=== PATIENT | male | born 1960 | race Asian ===

== ENCOUNTER 2017-01-05 06:48 | Inpatient (IN) | payer BC ==
[2017-01-05] MEDS ORDERED: Heparin VIAL(*) 5000 UNITS/ML VIAL (FIVE THOUSAND) ONE (06:53)
[2017-01-05] MEDS ORDERED: Heparin VIAL(*) 5000 UNITS/ML VIAL (FIVE THOUSAND) IV ONE (06:55)
[2017-01-05 07:03] LABS: Hematocrit 46 % (42-52); Hemoglobin 15.3 g/dl (14.0-18.0); Mean Corpuscular HGB Conc 34 g/dl (31-36); Mean Corpuscular Hemoglobin 30 pg (27-31); Mean Corpuscular Volume 90 fL (80-94); Mean Platelet Volume 8 um3 (7.4-10.4); Red Blood Count 5.06 10^6/ul (4.0-5.4); Red Cell Distribution Width 14 % (10.5-15); White Blood Count 6.3 10^3/ul (3.5-10.8)
[2017-01-05] MEDS ORDERED: Heparin 2 UNITS/ML IVPREMIX* 3,000 ML IV ONE ×2 (07:07→07:14)
[2017-01-05] MEDS ORDERED: Lidocaine 1% INJ* 10 MG/ML 30 ML SDV ONE ×2 (07:07→07:14)
[2017-01-05] MEDS ORDERED: nitroGLYCERIN DRIP* 250 ML ONE ×2 (07:13→07:14)
[2017-01-05] MEDS ORDERED: VERAPAMIL 2.5 MG/ML 4 ML VIAL ONE (07:13)
[2017-01-05] MEDS ORDERED: Heparin(*) 1000 UNIT/ML 10 ML VIAL CATH LAB IV ONE (07:13)
[2017-01-05] MEDS ORDERED: Iohexol 350 (CONTRAST) 200 ML MDV IV ONE ×2 (07:14→07:15)
[2017-01-05] MEDS ORDERED: Midazolam* 1 MG/ML 5 ML VIAL (5 MG) ONE (07:14)
[2017-01-05] MEDS ORDERED: fentaNYL* 50 MCG/ML 2 ML VIAL (100 MCG VIAL) ONE (07:14)
[2017-01-05 07:19] LABS: Albumin 4.2 g/dL (3.2-5.2); BUN/Creatinine Ratio 15.7 (8-20); Calcium 9.2 mg/dL (8.6-10.3); EGFR African American 90.6 (>60); EGFR Non-African American 70.5 (>60); Globulin 3.3 g/dL (2-4); Potassium 3.6 mmol/L (3.5-5.0); Total Bilirubin 0.6 mg/dL (0.2-1.0); Total Protein 7.5 g/dL (6.4-8.9)
[2017-01-05] MEDS ORDERED: Nitroglycerin TAB 0.4 MG* 0.4 MG TAB ONE (07:21)
--- NOTE | 2017-01-05 07:21 | ED ---
Bonifacio Mehta Rebecca, scribed for Dionisio Christine MD on 01/05/17 at 0656 . HPI Chest Pain - HPI Summary HPI Summary: Pt is a 56 y/o M BIBA who presents to ED c/o right anterior CP. Pain began this morning at approximately 0600. Initially, pain was severe, ranked 9/10 and now it is moderate, ranked 5/10 after 1x NTG and 324 mg ASA administration en route to [facility] ED. Sx aggravated by nothing, alleviated by NTG and ASA. Additionally c/ o diaphoresis. EMS report noticing ST elevation in V2, V3 and V4 while en route to [facility] ED. Is not on any blood thinners. No PMHx CAD. PMhx HTN. BG was 179 en route. NKDA. - History of Current Complaint Chief Complaint: EDChestPainROMI Hx Obtained From: Patient, EMS Onset/Duration: Still Present Time of Onset: 06:00 Initial Severity: Severe - 9/10 Current Severity: Moderate - 5/10 Pain Intensity: 5 Pain Scale Used: 0-10 Numeric Chest Pain Location: Right Anterior Aggravating Factor(s): Nothing Alleviating Factor(s): EMS Tx Associated Signs and Symptoms: Positive: Diaphoresis - Allergy/Home Medications Allergies/Adverse Reactions: Allergies Allergy/AdvReac Type Severity Reaction Status Date / Time No Known Allergies Allergy Verified 01/05/17 07:02 PMH/Surg Hx/FS Hx/Imm Hx Cardiovascular History: Reports: Hx Hypertension Denies: Hx Coronary Artery Disease History: Denies: Hx Renal Disease Infectious Disease History: Denies: Traveled Outside the [place] in Last 30 Days - Family History Known Family History: Positive: Unknown - Unable to obtain - Social History Lives: With Family Alcohol Use: None Substance Use Type: Reports: None Smoking Status (MU): Never Smoked Tobacco Review of Systems Positive: Skin Diaphoresis Positive: Chest Pain All Other Systems Reviewed And Are Negative: Yes Physical Exam Triage Information Reviewed: Yes Vital Signs On Initial Exam: Initial Vitals BP 124/90 01/05/17 06:52 Vital Signs Reviewed: Yes Appearance: Positive: Well-Appearing, Pain Distress - mild Skin: Positive: Warm Head/Face: Positive: Normal Head/Face Inspection Eyes: Positive: DARIN ENT: Positive: Hearing grossly normal Neck: Positive: Supple Respiratory/Lung Sounds: Positive: Clear to Auscultation, Breath Sounds Present Cardiovascular: Positive: RRR Abdomen Description: Positive: Nontender, Soft Bowel Sounds: Positive: Present Musculoskeletal: Positive: Strength/ROM Intact Neurological: Positive: Alert, Oriented to Person Place, Time Psychiatric: Positive: Affect/Mood Appropriate Diagnostics - Vital Signs Vital Signs Temp Pulse Resp BP Pulse Ox 01/05/17 07:00 97.6 F 57 22 125/86 98 01/05/17 06:54 59 16 97 01/05/17 06:52 124/90 - Laboratory Lab Results: Lab Results 01/05/17 01/05/17 01/05/17 Range/Units 06:54 06:54 06:54 WBC 6.3 (3.5-10.8) 10^3/ul RBC 5.06 (4.0-5.4) 10^6/ul Hgb 15.3 (14.0-18.0) g/dl Hct 46 (42-52) % MCV 90 (80-94) fL MCH 30 (27-31) pg MCHC 34 (31-36) g/dl RDW 14 (10.5-15) % Plt Count 232 (150-450) 10^3/ul MPV 8 (7.4-10.4) um3 INR (Anticoag Therapy) 0.90 (0.89-1.11) APTT 25.5 L (26.0-36.3) seconds Sodium 134 (133-145) mmol/L Potassium 3.6 (3.5-5.0) mmol/L Chloride 103 (101-111) mmol/L Carbon Dioxide 24 (22-32) mmol/L Anion Gap 7 (2-11) mmol/L BUN 17 (6-24) mg/dL Creatinine 1.08 (0.67-1.17) mg/dL Est GFR ( Amer) 90.6 (>60) Est GFR (Non-Af Amer) 70.5 (>60) BUN/Creatinine Ratio 15.7 (8-20) Glucose 165 H (70-100) mg/dL Calcium 9.2 (8.6-10.3) mg/dL Total Bilirubin 0.60 (0.2-1.0) mg/dL AST 17 (13-39) U/L ALT 24 (7-52) U/L Alkaline Phosphatase 38 (34-104) U/L Total Creatine Kinase 117 (10-223) U/L CK-MB (CK-2) Pending Myoglobin Pending Troponin I Pending Total Protein 7.5 (6.4-8.9) g/dL Albumin 4.2 (3.2-5.2) g/dL Globulin 3.3 (2-4) g/dL Albumin/Globulin Ratio 1.3 (1-3) LDL Cholesterol Direct 92 mg/dL Blood Type Antibody Screen 01/05/17 Range/Units 06:54 WBC (3.5-10.8) 10^3/ul RBC (4.0-5.4) 10^6/ul Hgb (14.0-18.0) g/dl Hct (42-52) % MCV (80-94) fL MCH (27-31) pg MCHC (31-36) g/dl RDW (10.5-15) % Plt Count (150-450) 10^3/ul MPV (7.4-10.4) um3 INR (Anticoag Therapy) (0.89-1.11) APTT (26.0-36.3) seconds Sodium (133-145) mmol/L Potassium (3.5-5.0) mmol/L Chloride (101-111) mmol/L Carbon Dioxide (22-32) mmol/L Anion Gap (2-11) mmol/L BUN (6-24) mg/dL Creatinine (0.67-1.17) mg/dL Est GFR ( Amer) (>60) Est GFR (Non-Af Amer) (>60) BUN/Creatinine Ratio (8-20) Glucose (70-100) mg/dL Calcium (8.6-10.3) mg/dL Total Bilirubin (0.2-1.0) mg/dL AST (13-39) U/L ALT (7-52) U/L Alkaline Phosphatase (34-104) U/L Total Creatine Kinase (10-223) U/L CK-MB (CK-2) Myoglobin Troponin I Total Protein (6.4-8.9) g/dL Albumin (3.2-5.2) g/dL Globulin (2-4) g/dL Albumin/Globulin Ratio (1-3) LDL Cholesterol Direct mg/dL Blood Type A Positive Antibody Screen Pending Result Diagrams: 01/05/17 06:54 01/05/17 06:54 Lab Statement: Any lab studies that have been ordered have been reviewed, and results considered in the medical decision making process. - Radiology CXR Xray Interpretation: No Acute Changes Radiology Interpretation Completed By: ED Physician - EKG 0650 Cardiac Rate: Bradycardia - 56 bpm EKG Rhythm: Sinus Bradycardia EKG Interpretation: Anterior wall STEMI Chest Pain Course/Dx - Course Assessment/Plan: Pt is a 56 y/o M BIBA who presents to ED c/o right anterior CP. Pain began this morning at approximately 0600. Initially, pain was severe, ranked 9/10 and now it is moderate, ranked 5/10 after 1x NTG administration en route to [facility] ED. Sx aggravated by nothing, alleviated by NTG. Additionally c/o diaphoresis. EMS report noticing ST elevation in V2, V3 and V4 while en route to [facility] ED. Is not on any blood thinners. No PMHx CAD. BG was 179 en route. NKDA. 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 EKG is sinus bradycardia with an anterior wall ID. CXR reveals no acute findings, as rios kimy ED physician. In the ED course, pt was administered Heparin. - Diagnoses Provider Diagnoses: STEMI (ST elevation myocardial infarction) During the Visit The Following Alert/Code Occurred: STEMI - Called at 0640 - Provider Notifications Discussed Care Of Patient With: Desiree Madera Time Discussed With Above Provider: 07:00 Instructed by Provider To: Other - Will evaluate pt in the ED. - Critical Care Time Critical Care Time: 30-74 min Discharge - Discharge Plan Condition: Fair Disposition: ADMITTED TO [facility] Referrals: Non Staff,Doctor [Primary Care Provider] - The documentation as recorded by the Bonifacio guadalupe Rebecca accurately reflects the service I personally performed and the decisions made by me, Dionisio Christine MD.
[2017-01-05 07:29] LABS: Troponin I 0.04 ng/mL (<0.04)
[2017-01-05] MEDS ORDERED: Lidocaine 2% (CARDIAC)* 20 MG/ML 5 ML SYRINGE (100 MG) ONE (07:43)
[2017-01-05] MEDS ORDERED: Ticagrelor* 90 MG TAB PO ONE (07:53)
[2017-01-05] MEDS ORDERED: Eptifibatide IV (Load dose)(*) 2 MG/ML 10 ml VIAL ONE ×2 (07:56→07:57)
[2017-01-05] MEDS ORDERED: Atropine SYRINGE* 0.1 MG/ML 10 ML SYRINGE (1 MG) ONE (08:09)
[2017-01-05] MEDS ORDERED: Nitroglycerin TAB 0.4 MG* 0.4 MG TAB SL PRN (09:30)
[2017-01-05] MEDS ORDERED: NS 0.9% 1000 ML* 1,000 ML IV SCH (09:30)
[2017-01-05] MEDS ORDERED: Ondansetron INJ* 2 MG/ML VIAL IV PRN (09:34)
[2017-01-05] MEDS ORDERED: Acetaminophen TAB* 325 MG PO PRN (09:34)
[2017-01-05] MEDS ORDERED: Captopril TAB* 12.5 MG PO SCH (10:00)
[2017-01-05] MEDS ORDERED: Metoprolol Tartrate TAB* 25 MG PO SCH (10:00)
[2017-01-05] MEDS: Allopurinol TAB* 300 MG PO SCH (10:17)
[2017-01-05] MEDS: Mometasone/Formoter 100/5 MDI INH SCH ×2 (10:18→21:48)
[2017-01-05 11:05] LABS: LDL Cholesterol Direct 95 mg/dL
[2017-01-05 11:11] LABS: Troponin I 68.13 ng/mL (<0.04)
[2017-01-05] MEDS: Enoxaparin(*) 40 MG/0.4 ML SYR SUBCUT SCH (11:15)
--- NOTE | 2017-01-05 11:18 | RAD ---
Indication: ST elevation myocardial infarction. Comparison: No relevant prior exams available on the [facility] PACS for comparison. Technique: Upright AP 0700 hours Report: Clear lungs and pleural spaces. Negative for pneumothorax. Upper normal heart size accounting for portable AP technique. Unremarkable central pulmonary vasculature and mediastinal contours. Unremarkable osseous structures and soft tissue contours. IMPRESSION: Upper normal heart size. Negative for pulmonary edema.
[2017-01-05 11:44] LABS: Creatine Kinase 3152 U/L (10-223)
[2017-01-05 11:48] LABS: C Reactive Protein < 1.00 mg/L (< 5.00)
--- NOTE | 2017-01-05 12:26 | CATH ---
CC: Wilfred Herrera MD, [facility]. * STENT REPORT: DATE OF PROCEDURE: 01/05/17 - ROOM #ICU-04 PRIMARY CARE PHYSICIAN: [facility]. CHIEF CLINICAL DIETITIAN: Wilfred Herrera MD, [facility]. . PROCEDURES: Right radial artery access, bilateral selective coronary cineangiography, left heart catheterization, left ventriculography, stent placement LAD, distal 2.5 x 8 bare metal stent, mid 3 x 32 bare metal stent in anticipation of bypass grafting, Pronto aspiration thrombectomy, double bolus IC Integrilin. HISTORY: A 56-year-old recently diagnosed diabetic with history of hypertension , presenting with acute anterior wall ST elevation infarct. PROCEDURE: He received aspirin and 4000 units of heparin in the ER. ACCESS: Right radial sheath 6F Slender. 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 Subcu lidocaine. 2. IV Versed. 3. IV fentanyl. 4. Heparin 3000 units. 5. Verapamil 3 mg IA. 6. Nitroglycerin 300 mcg IA. 7. Brilinta 180 mg p.o. loading dose. 8. Double bolus IC Integrilin. 9. Atropine 0.5 mg x1 for bradycardia. 10. Lidocaine total 100 mg IV for recurring episodes of bigemini and 3-beat runs of nonsustained VT. DIAGNOSTIC CATHETERS: A 5F TIG4, guiding catheter 6FLBU 3.5, wire 0.014 BMW. Aspiration catheter Pronto V4 6-Romanian, 2 passes. Distal LAD stent placement 2.5 x 8 mini vision cobalt chromium 16 atmospheres 25 seconds, mid LAD 3.0 x 32 Rebel bare metal stent 14 atmospheres 25 seconds. BMS was utilized in anticipation of patient needing bypass grafting for 3-vessel multilesion disease and intermediate Syntax score post revascularization. Left heart catheterization and LV gram with 5F radial pigtail. HEMODYNAMICS: Initial BP 135/76, LV post revascularization 114/10-21, no aortic valve gradient on pullback. After diagnostic angiography, LAD intervention was performed as above. He received double bolus IC Integrilin after aspiration thrombectomy of the LAD x 2 because of heavy presenting thrombus burden. Reperfusion of the LAD demonstrated a distal focal significant stenosis, which was stented with a 2.5 mm stent. The apical part of the LAD has diffuse disease, which was not treated as it is not critical, very distal, and of small caliber. The mid LAD was then stented. Left heart catheterization and LV gram followed. Hemostasis was achieved with a radial band. There were no complications. Total contrast 145 mL Omnipaque. Fluoro time 7.2 minutes. Radiation 1681 milligray, 11,305 microgray per meter squared. ANGIOGRAPHY: Right brachial artery: There was some resistance to advancement of the J-wire, hence imaging was performed, showed only some tortuosity. This was easily traversed with a Wholey wire. RCA: The RCA is large, dominant, has a proximal 40% stenosis. The coronary arteries are moderately calcified. There is diffuse nonobstructive proximal plaquing. The PDA is moderate, bifurcates early, the more lateral side branch has an 80% proximal stenosis. The PDA is followed by 2 moderate posterolaterals which have 80% stenoses at their origins. Distal RCA provides a collateral transatrially to the AV groove circumflex with filling of a circumflex posterolateral branch. Left main: The left main is large, has no stenosis. LAD: The LAD is moderate, has proximal mild luminal irregularity, supplies a moderate diagonal, which has a proximal bifurcation with a very small medial branch, the larger lateral branch has a 40% to 50% stenosis. The LAD continuation has moderate calcification, the LAD is occluded after this large second septal, preceding the large second septal there is an evident large thrombus. There is also probable distal thrombus, mid to distal LAD flow is SANJU-0. After aspiration thrombectomy, there was antegrade flow demonstrating a diffusely severely diseased LAD with ectasia, moderate mid diagonal with luminal irregularity and a mid 60% stenosis, mid to distal LAD 75% stenosis, and a long tubular stenosis in the apical segment of the LAD, which wraps around the apex. After distal LAD stent placement, mid LAD stent placement utilizing bare metal stents due to anticipated forthcoming bypass grafting for 3-vessel multilesion disease, and double bolus IC Integrilin flow is SANJU-III. The distal diffuse LAD disease was not stented. Circumflex: The circumflex is not dominant is moderate with 2 small marginal branches after which the circumflex has an 80% stenosis, it then supplies a moderate marginal, which has proximal tandem 80% stenoses, the AV groove continuation has competitive flow with the collateral from the RCA, isolating a relatively small caliber posterolateral. LV Gram: There is distal anteroapical and apical akinesis, estimated LVEF 40%. No evident significant mitral regurgitation. CONCLUSION: 1. Severe 3-vessel multilesion disease. 2. Culprit mid LAD occlusion, excellent angiographic result with bare metal stent placement mid LAD and distal LAD in anticipation of forthcoming bypass grafting. 3. Unremarkable left-sided hemodynamics. 4. LV systolic dysfunction with distal anteroapical wall motion abnormality consistent with anterior infarct. 5. Successful right radial artery access. [id number]/[facility] #: [id number] ABELARDO
--- NOTE | 2017-01-05 12:34 | HP ---
CC: Dr. Wilfred Herrera, [facility], , phone #. * HISTORY AND PHYSICAL: DATE OF ADMISSION: 01/05/17. PRIMARY CARE PHYSICIAN: [facility]. SOLDER TECHNICIAN: Dr. Wilfred Herrera, [facility], , phone #[phone]. HISTORY OF PRESENT ILLNESS: A 56-year-old male presented to the ER with acute anterior ST elevation infarct. He is a good historian, he has been following with Dr. Herrera. His last stress test was about 2 years ago and to his family's knowledge, it was normal. He has also had normal LV function by echo per his . He has had effort- related fatigue, but no previous chest pain. This morning at 0600, he developed precordial pressure with dyspnea, EMS was called. Transmitted EKG showed anterior ST elevation. This was confirmed in the ER. He was brought emergently to the veterinary laboratory diagnostician, still complaining of moderate chest discomfort and dyspnea with orthopnea. He does not take aspirin regularly. He has been treated for hypertension and gout. Recently, he was apparently found to be hyperglycemic and was started on diet management of diabetes. PAST MEDICAL HISTORY: 1. Hypertension, treated with valsartan 320 mg daily. 2. Gout, recently increased to 300 mg of allopurinol daily. 3. Asthma, treated with Symbicort and ProAir. 4. Recently diagnosed diabetes, diet treated. PREHOSPITAL MEDICATIONS: 1. Valsartan 320 mg daily. 2. Allopurinol 300 mg daily. 3. Symbicort and ProAir. Diabetic diet. ALLERGIES: None to medications. FAMILY HISTORY: Negative for premature coronary artery disease. 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 He is . He is here helping his son moving to [place]. REVIEW OF SYSTEMS: General: Notable only for effort-related fatigue. Pulmonary: History of asthma. 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 GI: No history of peptic ulcer disease or bleeding. Circulatory: No claudication. : He takes a vitamin for prostate. Heme: No history of malignancy or anemia. Remainder all negative. PHYSICAL EXAMINATION VITAL SIGNS: Initial ER vitals, BP 124/90, heart rate in the 60s. HEENT: Unremarkable. No xanthelasma, scleral injection. EOMs grossly normal. Cranial nerves grossly intact. Tongue midline. Mucosa moist. NECK: JVP not elevated. Carotids normal. No bruits. LUNGS: Clear to percussion and auscultation. Cardiac Exam: Cooter not palpable. Normal S1, S2. No audible gallop, murmur, or rub. Nontender. ABDOMEN: Soft, nontender. Aorta not palpable. Normal radial, femoral and pedal pulses. No bruits. EXTREMITIES: No edema, cyanosis, or clubbing. SKIN: Warm and well perfused. Psych: He is oriented, appropriate. DIAGNOSTIC STUDIES/LAB DATA: EKG at 0656, sinus bradycardia at 56, left anterior hemiblock, poor R-wave progression V1 through V4 with ST elevation V1 through V3. CBC normal with hemoglobin 15.3, platelet count 232,000. BMP: Potassium 3.6, creatinine 1.08, random blood sugar 165. First troponin 0.04. BNP normal at 21, LDL 92. Chest x-ray by my review portable film, no infiltrate, no CHF. IMPRESSION: 1. Anterior wall ST elevation infarct. He was transferred to the veterinary laboratory diagnostician for emergent catheterization. 2. Diabetes type 2, recently diagnosed. I have ordered a hemoglobin A1c. 3. Hypertension, treated with valsartan. 4. Gout, on allopurinol. 5. History of asthma. [id number]/[facility] #: [id number] [facility]
[2017-01-05 17:13] LABS: Troponin I > 82.00 ng/mL (<0.04)
[2017-01-05 17:25] LABS: Glucose 181 mg/dL (70-100)
[2017-01-05 17:33] LABS: Creatine Kinase 2571 U/L (10-223)
[2017-01-05] MEDS: Atorvastatin* 80 MG TAB PO SCH (18:35)
[2017-01-05] MEDS: Pantoprazole TAB (NF) 40 MG TAB PO SCH (20:23)
[2017-01-05] MEDS: Metoprolol Tartrate TAB* 25 MG PO SCH (20:24)
[2017-01-05] MEDS: Ticagrelor* 90 MG TAB PO SCH (20:24)
[2017-01-05 22:09] LABS: Troponin I 66.16 ng/mL (<0.04)
[2017-01-06 04:25] LABS: BUN/Creatinine Ratio 11.8 (8-20); Calcium 8.8 mg/dL (8.6-10.3); EGFR African American 119.5 (>60); EGFR Non-African American 92.9 (>60); Potassium 3.5 mmol/L (3.5-5.0)
[2017-01-06 04:29] LABS: Troponin I 49.46 ng/mL (<0.04)
[2017-01-06] MEDS: Metoprolol Tartrate TAB* 25 MG PO SCH ×4 (06:07→20:45)
[2017-01-06] MEDS: Mometasone/Formoter 100/5 MDI INH SCH ×2 (08:42→20:16)
[2017-01-06] MEDS: Valsartan TAB* 160 MG PO SCH (08:43)
[2017-01-06] MEDS: Enoxaparin(*) 40 MG/0.4 ML SYR SUBCUT SCH (08:43)
[2017-01-06] MEDS: Allopurinol TAB* 300 MG PO SCH (08:44)
[2017-01-06] MEDS: Ticagrelor* 90 MG TAB PO SCH ×2 (08:44→20:42)
[2017-01-06] MEDS: Aspirin Low Dose CHEW TAB* 81 MG PO SCH (08:45)
[2017-01-06] MEDS ORDERED: Perflutren Lipid Microsphere* 3 ML VIAL ONE (09:35)
--- NOTE | 2017-01-06 10:13 | ECHO ---
Patient: OBDULIO CLEANING [facility] Rec#: [id number] : 1960 Date: 01/06/2017 Age: 56y Height: 170.18 cm / 67.0 in Weight: 86.64 kg / 191.0 lbs Sex: M BSA: 1.98 Room#: ICU 4 Admit Date#: 01/05/2017 Type: Inpatient Referring: Sonny Brantley MD Reading: Sonny Brantley MD Marine Animal Trainer: [facility] Transthoracic Echocardiogram Indication: STEMI BP: 100/71 HR: 57 Rhythm: Bradycardia Findings History: HTN, DM, gout, former smoker. Technical Comments: The study quality is good. Completed 1000 Left Ventricle: The left ventricular chamber size is normal. Mild concentric left ventricular hypertrophy is observed. There are multiple regional wall motion abnormalities. The mid anterior wall has moderate to severe hypokinesis with akinesis of the distal anterior wall, apex and distal inferior wall. There is moderately decreased left ventricular systolic function. The estimated ejection fraction is 35-40%. Visually estimated LVEF is closer to 40 % There is an E to A reversal in the mitral valve flow pattern suggestive of diastolic dysfunction. Left Atrium: The left atrium is slightly dilated. Right Ventricle: The right ventricular chamber size and systolic function are within normal limits. Right Atrium: The right atrial cavity size is normal. Aortic Valve: The aortic valve is trileaflet. Systolic excursion of the aortic valve is normal. There is no evidence of aortic regurgitation. There is no evidence of aortic stenosis. Mitral Valve: The mitral valve leaflets appear normal. There is a trace of mitral regurgitation. There is no evidence of mitral stenosis. Tricuspid Valve: The tricuspid valve leaflets are normal. There is trace tricuspid regurgitation. Unable to estimate the right ventricular systolic pressure. Pulmonic Valve: The pulmonic valve appears normal. There is trace to mild pulmonic regurgitation. Pericardium: There is no significant pericardial effusion. Aorta: The aortic root appears normal. There is no dilatation of the aortic arch. Pulmonary Artery: The main pulmonary artery appears normal. Venous: The inferior vena cava appears normal in size. There is a greater than 50% respiratory change in the inferior vena cava dimension. Contrast: Definity was used to optimize study. A total of 4 ml was used Conclusions Mild concentric left ventricular hypertrophy is observed. There are multiple regional wall motion abnormalities. The mid anterior wall has moderate to severe hypokinesis with akinesis of the distal anterior wall, apex and distal inferior wall. There is moderately decreased left ventricular systolic function. The estimated ejection fraction is 35-40%. Visually estimated LVEF is closer to 40 % There is an E to A reversal in the mitral valve flow pattern suggestive of diastolic dysfunction. The left atrium is slightly dilated. There is a trace of mitral regurgitation. There is trace tricuspid regurgitation. Unable to estimate the right ventricular systolic pressure. There is trace to mild pulmonic regurgitation. No reports of prior studies are offered for comparison. Measurements Name Value Normal Range RVIDd (AP) 2D 2.2 cm (0.9 - 2.6) RVDdMajor (2D) 3.1 cm (2.2 - 4.4) RAd ISD 4CH 4.6 cm (3.4 - 4.9) RA (A4C)W 3.9 cm (2.9 - 4.6) IVSd (2D) 1.3 cm (0.6 - 1) LVPWd (2D) 1.1 cm (0.6 - 1) LVIDd (2D) 5 cm (3.6 - 5.4) LVIDs (2D) 3.8 cm - LV FS (2D) 24.5 % (25 - 45) Aortic Annulus 2 cm (1.4 - 2.6) Ao root diameter (2D) 3.2 cm (2.1 - 3.5) Ascending Ao 3.2 cm (2.1 - 3.4) Aortic arch 2.8 cm (1.8 - 3.4) LA dimension (AP) 2D 4 cm (2.3 - 3.8) LAd ISD 4CH 5.6 cm (2.9 - 5.3) LA ISD 4CH W 4.2 cm (2.5 - 4.5) Name Value Normal Range LA ESV SP 4CH (A/L) 56.52 ml - LA ESV SP 2CH (A/L) 41.8 ml - LA ESV BP (A/L) 49.12 ml - LA ESV BP (A/L) index 25 ml/m2 - LA ESV SP 4CH (MOD) 54.66 ml - LA ESV SP 2CH (MOD) 39.46 ml - Name Value Normal Range MV E-wave Vmax 0.6 m/sec - MV deceleration time 213.5 msec - MV A-wave Vmax 0.8 m/sec - MV E:A ratio 0.8 ratio - P. vein S-wave Vmax 0.6 m/sec - P. vein D-wave Vmax 0.4 m/sec - P. vein S:D Vmax ratio 1.4 ratio - P. vein A-wave duration 93.4 msec - LV lateral e' Vmax 0.06 m/sec - LV E:e' lateral ratio 10 ratio - Name Value Normal Range AV Vmax 1.6 m/sec - AV VTI 29.3 cm - AV peak gradient 10 mmHg - AV mean gradient 4.9 mmHg - LVOT Vmax 1 m/sec - LVOT VTI 21.2 cm - LVOT peak gradient 4 mmHg - LVOT mean gradient 2.2 mmHg - KELVIN Vmax 0.7 m/sec - Name Value Normal Range RAP 8 mmHg - IVC diameter 1.4 cm - Name Value Normal Range PV Vmax 0.8 m/sec - PV peak gradient 2.6 mmHg -
[2017-01-06] MEDS: Atorvastatin* 80 MG TAB PO SCH (17:04)
[2017-01-06] MEDS: Pantoprazole TAB (NF) 40 MG TAB PO SCH (20:42)
[2017-01-07] MEDS: Metoprolol Tartrate TAB* 25 MG PO SCH ×3 (05:55→20:23)
[2017-01-07 06:34] LABS: BUN/Creatinine Ratio 16.3 (8-20); Calcium 8.8 mg/dL (8.6-10.3); EGFR African American 117.9 (>60); EGFR Non-African American 91.7 (>60); Potassium 3.7 mmol/L (3.5-5.0)
[2017-01-07] MEDS: Mometasone/Formoter 100/5 MDI INH SCH ×2 (08:47→21:12)
[2017-01-07] MEDS: Allopurinol TAB* 300 MG PO SCH (09:39)
[2017-01-07] MEDS: Ticagrelor* 90 MG TAB PO SCH ×2 (09:39→20:23)
[2017-01-07] MEDS: Valsartan TAB* 160 MG PO SCH (09:39)
[2017-01-07] MEDS: Enoxaparin(*) 40 MG/0.4 ML SYR SUBCUT SCH (09:40)
[2017-01-07] MEDS: Aspirin Low Dose CHEW TAB* 81 MG PO SCH (09:40)
[2017-01-07] MEDS: Atorvastatin* 80 MG TAB PO SCH (16:29)
[2017-01-07] MEDS: Pantoprazole TAB (NF) 40 MG TAB PO SCH (20:23)
[2017-01-08 05:35] LABS: BUN/Creatinine Ratio 14.1 (8-20); Calcium 8.7 mg/dL (8.6-10.3); EGFR African American 100.2 (>60); EGFR Non-African American 77.9 (>60)
[2017-01-08] MEDS: Metoprolol Tartrate TAB* 25 MG PO SCH ×3 (05:55→21:37)
[2017-01-08] MEDS: Mometasone/Formoter 100/5 MDI INH SCH ×2 (08:58→19:57)
[2017-01-08] MEDS: Ticagrelor* 90 MG TAB PO SCH ×2 (09:09→21:37)
[2017-01-08] MEDS: Aspirin Low Dose CHEW TAB* 81 MG PO SCH (09:09)
[2017-01-08] MEDS: Valsartan TAB* 160 MG PO SCH (09:09)
[2017-01-08] MEDS: Allopurinol TAB* 300 MG PO SCH (09:09)
[2017-01-08] MEDS: Enoxaparin(*) 40 MG/0.4 ML SYR SUBCUT SCH (09:10)
[2017-01-08] MEDS: Atorvastatin* 80 MG TAB PO SCH (17:14)
[2017-01-08] MEDS: Pantoprazole TAB (NF) 40 MG TAB PO SCH (21:37)
[2017-01-09 03:24] VITALS: BP 130/62
[2017-01-09] MEDS: Metoprolol Tartrate TAB* 25 MG PO SCH (05:48)
[2017-01-09] MEDS: Allopurinol TAB* 300 MG PO SCH (06:57)
[2017-01-09] MEDS: Ticagrelor* 90 MG TAB PO SCH (06:57)
[2017-01-09] MEDS: Valsartan TAB* 160 MG PO SCH (06:58)
[2017-01-09] MEDS: Aspirin Low Dose CHEW TAB* 81 MG PO SCH (06:58)
--- NOTE | 2017-01-09 07:35 | DS ---
CC: Dr. Wilfred Herrrea, [place], [place], phone [phone], fax [phone] * DATE OF ADMISSION: 01/05/17 DATE OF DISCHARGE: 01/09/17 FINAL DIAGNOSIS: 1. Acute ST segment elevation anterior wall myocardial infarction. SECONDARY DIAGNOSES: Include 1. Hypertension. 2. Gout. 3. Asthma. 4. Diabetes, diet treated. DISCHARGE MEDICATIONS: Include 1. Allopurinol 300 mg a day. 2. Aspirin 81 mg a day. 3. Lipitor 80 mg a day was switched to rouvastatin 40 mg as his prescription plan favored that. 4. Metoprolol tartrate 25 mg q 8 hours. 5. Inhalers as he took at home. 6. Ticagrelor 90 mg twice a day. 7. Valsartan 320 mg once a day. The patient is a 56-year-old gentleman with no prior known cardiac history. He had been followed by Dr. 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 He had had a stress test two years ago; according to the family they were told it was normal, and had normal LV function by an echo according to the . On the morning of admission, he developed precordial chest discomfort with dyspnea, and EMS were summoned. EKG showed an acute ST segment elevation myocardial infarction; and, as such, he presented to the emergency room in the throes of this. Please refer to the H and P for complete details of his presentation. He was taken emergently by Dr. Desiree Madera to the cardiovascular laboratory where he was loaded with Brilinta 180 mg and had already received heparin 4000 units in the ER and aspirin. Cardiac catheterization revealed the right coronary artery to be a large dominant vessel with a proximal 40% stenosis. The PDA was moderate, bifurcating early, with the more lateral branch having an 80% stenosis. The PDA was followed by two moderate posterior lateral branches with 80% stenosis at their origin. The distal right coronary artery supplied collaterals to a circumflex posterior lateral branch. The left main had no stenosis. The LAD was moderate in size with mild luminal irregularities proximal, supplying a moderate diagonal branch which had a proximal bifurcation , the larger lateral branch had a 40-50% stenosis. The LAD was totally occluded after a large second septal. There was thrombus noted. Distal thrombus was also noted in the mid to distal LAD with SANJU- 0 flow. After aspiration thrombectomy, antegrade flow demonstrated diffuse disease within the LAD with ectasia, moderate mid diagonal branch with luminal irregularities and a mid 60% stenosis, and mid to distal 75% stenosis with a long tubular stenosis in the apical segment of the LAD was wrapped around the apex. After distal stent (2.5 x 8 mm Multilink mini vision BMS) was placed and proximal to mid stent(3.00x32 mm Rebel BMS) placed utilizing bare metal stents due to anticipation of need for bypass surgery with triple-vessel disease, double bolus Integrilin was given and SANJU-3 flow was established. The circumflex was non- dominant with too small marginal branch after which the circumflex had an 80% stenosis, then supplied a moderate marginal branch which had a proximal tandem 80% stenosis. LV gram showed distal anterior-apical apical akinesis with an EF of 40%. During the course of the hospitalization, laboratory results revealed his cardiac enzymes to immediately peak with a CPK of 3152 and MB of 277. His troponins went up at one point greater than 82, but then came down in a relatively quick pattern. The MBs proceeded to come down, suggesting early washout. He underwent a transthoracic echocardiogram on 01/06/17 demonstrating an EF of 35-40%, visually estimated closer to 40, with mid anterior wall moderate to severe hypokinesis with akinesis of the distal anterior wall apical region of distal inferior wall. There was trace mitral and trace tricuspid, and trace to mild pulmonic regurgitation. During the course of the hospitalization, he did well, was kept on his ARB. Beta flavio therapy was instituted, Ticagrelor and aspirin were continued. His EKG showed evolution of his anterior wall myocardial infarction. Eventually, on the day of discharge, he was up and about, stable. He had no recurrent chest discomfort walking in the halls for at least 48 hours. He will be returning to cardiac care under Dr. Wilfred Herrera in [place], who I've already once been in contact with. CDs were made of the echo and the catheterization to give personally to Dr. Herrera so that he can take over with the case. Patient received a cardiac education booklet in addition to a stent card. On the day of discharge, patient was stable. Vital signs prior to morning medications were blood pressure 130/62, pulse in 60s. Neck - supple, no increased JVP. Carotid with good upstroke and volume without bruits. Conjunctivae pink. Sclerae clear. Lungs - revealed no accessory muscle usage. There was good excursion. Lungs were clear to A and P. heart - revealed no visible heaves, no palpable heaves or thrills, normal S1 and S2. There were no significant systolic or diastolic murmur. Abdomen - soft, non-tender, without organomegaly. Extremities - without clubbing, cyanosis, arslan pitting edema. Neuro - patient alert, oriented with normal mentation. Musculoskeletal - patient with normal gait. Psychiatric - patient with normal affect. LAST LABORATORY RESULTS: From yesterday, 01/08/17, revealed sodium 136, potassium 4.0, chloride 106, bicarb 24, BUN and creatinine 14.9. Of note - throughout the course of the hospitalization, his fasting glucoses were mildly elevated in the 120s to 130 range. He will be following up with this with his family doctor. [id number]/[facility] #: [id number] ABELARDO
== END 2017-01-09 07:53 | disposition home or self-care (01) | DRG 174 ==
LOC: ED 06:48 → ICU 07:34 → MEDTELE 01-07 11:13
PROVIDERS: ADMIT Internal Medicine Cardiovascular Disease; ATTEND Internal Medicine Cardiovascular Disease
PROC: 02C03ZZ Extirpation of Matter from Coronary Artery, One Artery, Percutaneous Approach (ICD-10-PCS; 2017-01-05)
PROC: 3E033PZ Introduction of Platelet Inhibitor into Peripheral Vein, Percutaneous Approach (ICD-10-PCS; 2017-01-05)
PROC: B2111ZZ Fluoroscopy of Multiple Coronary Arteries using Low Osmolar Contrast (ICD-10-PCS; 2017-01-05)
PROC: 4A023N7 Measurement of Cardiac Sampling and Pressure, Left Heart, Percutaneous Approach (ICD-10-PCS; 2017-01-05)
PROC: B2151ZZ Fluoroscopy of Left Heart using Low Osmolar Contrast (ICD-10-PCS; 2017-01-05)
PROC: 02703EZ Dilation of Coronary Artery, One Artery with Two Intraluminal Devices, Percutaneous Approach (ICD-10-PCS; principal; 2017-01-05 07:00)
DX: I21.09 ST elevation (STEMI) myocardial infarction involving other coronary artery of anterior wall (principal); I08.1 Rheumatic disorders of both mitral and tricuspid valves; I10 Essential (primary) hypertension; M10.9 Gout, unspecified; J45.909 Unspecified asthma, uncomplicated; E11.9 Type 2 diabetes mellitus without complications; I25.10 Atherosclerotic heart disease of native coronary artery without angina pectoris; Z87.891 Personal history of nicotine dependence; Z79.82 Long term (current) use of aspirin; Z79.02 Long term (current) use of antithrombotics/antiplatelets
CPT/HCPCS: 36415; 71010; 80048; 80053; 82550; 82553; 82947; 83036; 83721; 83874; 83880; 84484; 85027; 85610; 85730; 86140; 86850; 86900; 86901; 87641; 93005; 93306; 94640; 94760; 99156; 99157; A9270-GY; C1725; C1757; C1769; C1876; C1887; C8929; J0461; J1327; J1644; J1650; J2001; J2250; J3010